=== PATIENT | female | born 1960 | race Caucasian/White ===

== ENCOUNTER 2016-10-19 17:06 | Emergency (ER) | payer OTHER ==
[~2016-10-19] VITALS: Ht 167.6 cm; Wt 72.0 kg
[2016-10-19] MEDS ORDERED: SODIUM CHLORIDE FLUSH 10ML SYR IVF ONE (17:30)
[2016-10-19] MEDS ORDERED: ONDANSETRON 2MG/ML, 2ML IVPush ONE ×2 (17:30→21:30)
[2016-10-19] MEDS ORDERED: HYDROmorphone 1 MG/ML, 1ML IVPush PRN (17:30)
[2016-10-19] MEDS ORDERED: ONDANSETRON 2MG/ML, 2ML ONE ×2 (18:11→20:48)
[2016-10-19] MEDS ORDERED: HYDROmorphone 1 MG/ML, 1ML ONE ×2 (18:11→20:48)
[2016-10-19] MEDS ORDERED: HYDROmorphone 1 MG/ML, 1ML IV ONE (20:30)
[2016-10-19 20:42] VITALS: BP 135/86
== END 2016-10-19 21:35 | disposition home or self-care (01) ==
LOC: ED 21:30
DX: S82.64XA Nondisplaced fracture of lateral malleolus of right fibula, initial encounter for closed fracture (principal); S20.219A Contusion of unspecified front wall of thorax, initial encounter; E03.9 Hypothyroidism, unspecified; F41.9 Anxiety disorder, unspecified; I10 Essential (primary) hypertension; G89.29 Other chronic pain; Z86.718 Personal history of other venous thrombosis and embolism; V43.52XA Car driver injured in collision with other type car in traffic accident, initial encounter; Y93.89 Activity, other specified; Y99.8 Other external cause status; Y92.488 Other paved roadways as the place of occurrence of the external cause
CPT/HCPCS: 29515; 36415; 71010; 73610; 85610; 93005; 96374; 96375; 96376; 99285; J1170; J2405

== ENCOUNTER 2017-05-16 12:07 | Emergency (ER) | payer OTHER ==
[~2017-05-16] VITALS: Ht 167.6 cm; Wt 70.4 kg
[2017-05-16 12:18] VITALS: BP 146/95
== END 2017-05-16 14:27 | disposition left against medical advice (07) ==
LOC: ED 14:20
DX: S06.0X0A Concussion without loss of consciousness, initial encounter (principal); E03.9 Hypothyroidism, unspecified; E78.00 Pure hypercholesterolemia, unspecified; I10 Essential (primary) hypertension; Z86.718 Personal history of other venous thrombosis and embolism; Z79.01 Long term (current) use of anticoagulants; W00.0XXA Fall on same level due to ice and snow, initial encounter; Y93.89 Activity, other specified; Y99.8 Other external cause status; Y92.410 Unspecified street and highway as the place of occurrence of the external cause
CPT/HCPCS: 99281

== ENCOUNTER 2017-05-21 17:35 | Emergency (ER) | payer OTHER ==
[~2017-05-21] VITALS: Ht 167.6 cm; Wt 70.4 kg
[2017-05-21 17:37] VITALS: BP 164/106
== END 2017-05-21 19:21 | disposition home or self-care (01) ==
LOC: ED 19:20
DX: S00.03XA Contusion of scalp, initial encounter (principal); Z79.01 Long term (current) use of anticoagulants; E78.00 Pure hypercholesterolemia, unspecified; E03.9 Hypothyroidism, unspecified; I10 Essential (primary) hypertension; Z86.718 Personal history of other venous thrombosis and embolism; W19.XXXA Unspecified fall, initial encounter; Y93.89 Activity, other specified; Y92.89 Other specified places as the place of occurrence of the external cause; Y99.8 Other external cause status
CPT/HCPCS: 70450; 99284

== ENCOUNTER → 2017-11-18 | Outpatient (CLI) | payer OTHER | END | disposition home or self-care (01) | LOC: CFH 14:45 | PROVIDERS: ATTEND Internal Medicine | DX: Z12.31 Encounter for screening mammogram for malignant neoplasm of breast (principal); N63.20 Unspecified lump in the left breast, unspecified quadrant | CPT/HCPCS: 77063; 77067 ==

== ENCOUNTER → 2017-12-02 | Outpatient (CLI) | payer OTHER | END | disposition home or self-care (01) | LOC: CFH 14:50 | PROVIDERS: ATTEND Internal Medicine | DX: N63.22 Unspecified lump in the left breast, upper inner quadrant (principal) | CPT/HCPCS: 77066 ==

== ENCOUNTER → 2017-12-09 | Outpatient (CLI) | payer OTHER ==
[~2017-12-09] MED LIST: LIDOCAINE 1%, 20ML ONE; LIDOCAINE 1%-EPI 1:100K, 20ML ONE; SODIUM BICARBONATE 4.0%, 5ML ONE
== END | disposition home or self-care (01) ==
LOC: CFH 08:42
PROVIDERS: ATTEND Internal Medicine
DX: C50.212 Malignant neoplasm of upper-inner quadrant of left female breast (principal); Z17.0 Estrogen receptor positive status [ER+]; Z86.711 Personal history of pulmonary embolism; Z79.01 Long term (current) use of anticoagulants
CPT/HCPCS: 19083; 77065; 88305; J3490

== ENCOUNTER → 2017-12-14 | Outpatient (CLI) | payer OTHER | END | disposition home or self-care (01) | LOC: CFH 09:19 | PROVIDERS: ATTEND Internal Medicine | DX: N60.11 Diffuse cystic mastopathy of right breast (principal) | CPT/HCPCS: 19081; 77065; 88305; J3490 ==

== ENCOUNTER → 2018-01-16 | Outpatient (CLI) | payer OTHER ==
[~2018-01-16] MED LIST changes: +ALPR2TAB5 PO; +CARV12.543 PO; +CHOL100015 PO; +CHOL200024 PO; +DOXY100T PO; +ERGO2000 PO; +LEVO50TA PO; -LIDOCAINE 1%, 20ML ONE; -LIDOCAINE 1%-EPI 1:100K, 20ML ONE; +LIOT5TAB10 PO; +PRAS1TAB PO; +RIVA20TA PO; -SODIUM BICARBONATE 4.0%, 5ML ONE
== END | disposition home or self-care (01) ==
LOC: STAR 15:53
PROVIDERS: ATTEND Surgery
DX: Z01.818 Encounter for other preprocedural examination (principal); D05.12 Intraductal carcinoma in situ of left breast; D48.61 Neoplasm of uncertain behavior of right breast
CPT/HCPCS: 93005

== ENCOUNTER 2018-01-26 11:10 | Day surgery (SDC) | payer OTHER ==
[~2018-01-26] VITALS: Ht 167.6 cm; Wt 74.4 kg
[~2018-01-26 11:10] MED LIST changes: +BACITRACIN 50,000 UNIT ONE; +BUPIVACAINE/PF-EPI 0.5% 1:200K ONE; +GENTAMICIN 80 MG/2 ML ONE; +ISOSULFAN BLUE 10 MG/ML, 5ML IV ONE; +VANCOMYCIN 1,000 MG ONE
[2018-01-26] MEDS ORDERED: LACTATED RINGERS 1,000 ML IV SCH ×2 (11:35→21:00)
[2018-01-26] MEDS ORDERED: ACETAMINOPHEN 500 MG TABLET PO ONE (12:00)
[2018-01-26] MEDS ORDERED: SCOPOLAMINE PATCH, 1.5MG PATCH.TD72 TD ONE (12:00)
[2018-01-26] MEDS ORDERED: GABAPENTIN 300 MG CAPSULE PO ONE (12:00)
[2018-01-26] MEDS ORDERED: ONDANSETRON ODT 8 MG PO ONE (12:00)
[2018-01-26] MEDS ORDERED: MIDAZOLAM 1 MG/ML, 2ML ONE (12:19)
[2018-01-26] MEDS ORDERED: FENTANYL PF 250 MCG/5ML ONE (12:19)
[2018-01-26 12:28] VITALS: BP 148/96
[2018-01-26] MEDS ORDERED: CEFAZOLIN 1,000 MG ONE ×2 (14:07→14:34)
[2018-01-26] MEDS ORDERED: LABETALOL 5MG/ML, 20ML ONE (14:34)
[2018-01-26] MEDS ORDERED: PROPOFOL 10 MG/ML, 20ML ONE (14:34)
[2018-01-26] MEDS ORDERED: ROCURONIUM 10 MG/ML,10ML ONE (14:34)
[2018-01-26] MEDS ORDERED: EPHEDRINE 50 MG/ML, 1ML ONE (14:34)
[2018-01-26] MEDS ORDERED: DEXAMETHASONE 4 MG/ML, 5ML ONE (14:34)
[2018-01-26] MEDS ORDERED: LIDOCAINE 4%, 4 ML SYR/CANN TP ONE (14:34)
[2018-01-26] MEDS ORDERED: LIDOCAINE-MPF 2% ,5ML ONE (14:34)
[2018-01-26] MEDS ORDERED: GLYCOPYRROLATE 0.2MG/1ML, 5ML ONE (14:34)
[2018-01-26] MEDS ORDERED: PROPOFOL 10 MG/ML, 50ML ONE (14:34)
[2018-01-26] MEDS ORDERED: ONDANSETRON ODT 8 MG PO PRN (15:30)
[2018-01-26] MEDS ORDERED: MEPERIDINE/PF 25MG/0.5ML IVPush PRN (15:30)
[2018-01-26] MEDS ORDERED: OXYcodone 5 MG/5 ML ORAL.SOL UDC PO PRN (15:30)
[2018-01-26] MEDS ORDERED: ONDANSETRON 2MG/ML, 2ML IV PRN (15:30)
[2018-01-26] MEDS ORDERED: LORazepam 2 MG/ML, 1ML IVPush PRN (15:30)
[2018-01-26] MEDS ORDERED: LABETALOL 5MG/ML, 20ML IV PRN (15:30)
[2018-01-26] MEDS ORDERED: hydrALAzine 20 MG/ML, 1ML IV PRN (15:30)
[2018-01-26] MEDS ORDERED: DIAZEPAM 5 MG/ML, 2ML IVPush PRN (15:30)
[2018-01-26] MEDS ORDERED: PROMETHAZINE 25 MG/ML, 1ML IV PRN (15:30)
[2018-01-26] MEDS ORDERED: BUPIVACAINE/PF-EPI 0.5% 1:200K ONE (17:21)
[2018-01-26] MEDS ORDERED: HYDROmorphone 2 MG/ML, 1ML ONE (18:23)
[2018-01-26] MEDS ORDERED: FENTANYL PF 100 MCG/2ML ONE (18:23)
[2018-01-26] MEDS ORDERED: OXYcodone 5 MG/5 ML ORAL.SOL UDC ONE (18:23)
[2018-01-26] MEDS: FENTANYL PF 100 MCG/2ML IV PRN ×2 (18:30→18:57)
[2018-01-26] MEDS: HYDROmorphone 1 MG/ML, 1ML IV PRN ×2 (18:39→18:48)
[2018-01-26] MEDS ORDERED: LORazepam 2 MG/ML, 1ML ONE (19:00)
[2018-01-26] MEDS ORDERED: MORPHINE SULFATE 4 MG/ML, 1ML IVPush PRN (21:00)
[2018-01-26] MEDS ORDERED: ONDANSETRON 2MG/ML, 2ML IVPush PRN (21:00)
== END 2018-01-26 23:55 | disposition home or self-care (01) ==
LOC: OUT 11:10 → EDSTATUS 14:00 → 4NOR 20:00 → OUT 23:55
PROVIDERS: ATTEND Surgery
DX: C50.912 Malignant neoplasm of unspecified site of left female breast (principal); I10 Essential (primary) hypertension; E03.9 Hypothyroidism, unspecified; F41.9 Anxiety disorder, unspecified; Z86.718 Personal history of other venous thrombosis and embolism; Z90.5 Acquired absence of kidney; Z79.899 Other long term (current) drug therapy; Z98.890 Other specified postprocedural states
CPT/HCPCS: 19340; 38525; 38792; 88305; 88307; 88333; A9541; C1729; C1762; C1789; J0690; J1100; J1170; J1580; J2060; J2250; J2704; J3010; J3490; J7120; Q0162; G0378; J3370

== ENCOUNTER 2018-04-03 09:34 | Outpatient (CLI) | payer MEDICARE, OTHER ==
[~2018-04-03 09:34] MED LIST changes: -BACITRACIN 50,000 UNIT ONE; -BUPIVACAINE/PF-EPI 0.5% 1:200K ONE; -GENTAMICIN 80 MG/2 ML ONE; -ISOSULFAN BLUE 10 MG/ML, 5ML IV ONE; -VANCOMYCIN 1,000 MG ONE
== END 2018-04-03 23:59 | disposition home or self-care (01) ==
LOC: ROC 09:34
PROVIDERS: ATTEND Radiology Radiation Oncology
DX: Z02.9 Encounter for administrative examinations, unspecified (principal)

== ENCOUNTER → 2018-05-12 | Outpatient (CLI) | payer MEDICARE | END | disposition home or self-care (01) | LOC: CFH 12:00 | PROVIDERS: ATTEND Internal Medicine Hematology & Oncology | DX: C50.812 Malignant neoplasm of overlapping sites of left female breast (principal); Z78.0 Asymptomatic menopausal state | CPT/HCPCS: 77080 ==

== ENCOUNTER 2018-07-27 08:11 | Outpatient (CLI) | payer MEDICARE | END 2018-07-27 23:59 | disposition home or self-care (01) | LOC: ROC 08:11 → EDSTATUS 02-27 10:37 | PROVIDERS: ATTEND Radiology Radiation Oncology | DX: Z02.9 Encounter for administrative examinations, unspecified (principal) ==

== ENCOUNTER → 2018-08-10 | Outpatient (CLI) | payer MEDICARE | END | disposition home or self-care (01) | LOC: ROC 08:05 | PROVIDERS: ATTEND Radiology Radiation Oncology | DX: C50.912 Malignant neoplasm of unspecified site of left female breast (principal) | CPT/HCPCS: 99212; G0463 ==

== ENCOUNTER → 2019-02-01 | Outpatient (CLI) | payer MEDICARE, OTHER | END | disposition home or self-care (01) | LOC: ROC 08:58 | PROVIDERS: ATTEND Radiology Radiation Oncology | DX: Z08 Encounter for follow-up examination after completed treatment for malignant neoplasm (principal); C50.812 Malignant neoplasm of overlapping sites of left female breast | CPT/HCPCS: 99213; G0463 ==

== ENCOUNTER 2019-02-16 07:47 | Outpatient (CLI) | payer MEDICARE, OTHER | END 2019-02-16 23:59 | disposition home or self-care (01) | LOC: ROC 07:47 | PROVIDERS: ATTEND Radiology Radiation Oncology | DX: C50.812 Malignant neoplasm of overlapping sites of left female breast (principal) | CPT/HCPCS: 99212; G0463 ==

== ENCOUNTER 2019-03-08 09:30 | Outpatient (CLI) | payer MEDICARE, OTHER | END 2019-03-08 23:59 | disposition home or self-care (01) | LOC: ROC 09:30 | PROVIDERS: ATTEND Radiology Radiation Oncology | DX: Z02.9 Encounter for administrative examinations, unspecified (principal) ==

== ENCOUNTER 2019-08-24 08:38 | Day surgery (SDC) | payer MEDICARE, OTHER ==
[~2019-08-24] VITALS: Ht 167.6 cm; Wt 70.5 kg
[2019-08-24] MEDS ORDERED: MIDAZOLAM 1 MG/ML, 2ML ONE (09:21)
[2019-08-24] MEDS ORDERED: FENTANYL PF 250 MCG/5ML ONE (09:22)
[2019-08-24] MEDS ORDERED: LACTATED RINGERS 1,000 ML IV SCH (09:36)
[2019-08-24 09:40] VITALS: BP 137/91
[2019-08-24] MEDS ORDERED: CHLORHEXIDINE 15 ML UDC ONE (09:50)
[2019-08-24] MEDS ORDERED: LIDOCAINE-MPF 1%, 2ML INFIL ONE (10:00)
[2019-08-24] MEDS ORDERED: CHLORHEXIDINE 15 ML UDC MM ONE (10:00)
[2019-08-24] MEDS ORDERED: PLEASE ENTER HEIGHT AND WEIGHT MC SCH (10:00)
[2019-08-24] MEDS ORDERED: GABAPENTIN 300 MG CAPSULE ONE (10:02)
[2019-08-24] MEDS ORDERED: SCOPOLAMINE 1MG PATCH TD ONE (10:02)
[2019-08-24] MEDS ORDERED: ACETAMINOPHEN 500 MG TABLET ONE (10:02)
[2019-08-24] MEDS ORDERED: LIDOCAINE 1%-EPI 1:100K, 20ML ONE (10:14)
[2019-08-24] MEDS ORDERED: PROMETHAZINE 25 MG/ML, 1ML IV PRN (11:30)
[2019-08-24] MEDS ORDERED: hydrALAzine 20 MG/ML, 1ML IV PRN (11:30)
[2019-08-24] MEDS ORDERED: DIAZEPAM 5 MG/ML, 2ML IVPush PRN (11:30)
[2019-08-24] MEDS ORDERED: LABETALOL 5MG/ML, 20ML IV PRN (11:30)
[2019-08-24] MEDS ORDERED: HYDROmorphone 2 MG/ML, 1ML IVPush PRN (11:30)
[2019-08-24] MEDS ORDERED: OXYcodone 5 MG/5 ML ORAL.SOL UDC PO PRN (11:30)
[2019-08-24] MEDS ORDERED: ALBUTEROL SULFATE 2.5 MG/3 ML NPPB PRN (11:30)
[2019-08-24] MEDS ORDERED: NEOSTIGMINE 1 MG/ML, 10ML ONE (11:59)
[2019-08-24] MEDS ORDERED: CEFAZOLIN 1,000 MG ONE (11:59)
[2019-08-24] MEDS ORDERED: SUCCINYLCHOLINE 20 MG/ML, 10ML ONE (11:59)
[2019-08-24] MEDS ORDERED: GLYCOPYRROLATE 0.2MG/1ML, 5ML ONE (11:59)
[2019-08-24] MEDS ORDERED: ONDANSETRON 2MG/ML, 2ML ONE (11:59)
[2019-08-24] MEDS ORDERED: PROPOFOL 10 MG/ML, 20ML ONE (11:59)
[2019-08-24] MEDS ORDERED: DEXAMETHASONE 4 MG/ML, 1ML ONE (11:59)
[2019-08-24] MEDS ORDERED: ROCURONIUM 10MG/ML,5ML ONE (11:59)
[2019-08-24] MEDS ORDERED: FENTANYL PF 100 MCG/2ML ONE (12:05)
[2019-08-24] MEDS ORDERED: OXYcodone 5 MG/5 ML ORAL.SOL UDC ONE (12:06)
[2019-08-24] MEDS: FENTANYL PF 100 MCG/2ML IV PRN ×2 (12:08→12:16)
[2019-08-24] MEDS ORDERED: HYDROmorphone 1 MG/ML, 1ML INJ ONE (12:35)
== END 2019-08-24 15:00 | disposition home or self-care (01) ==
LOC: OUT 08:38
PROVIDERS: ATTEND Plastic Surgery
DX: C50.919 Malignant neoplasm of unspecified site of unspecified female breast (principal); T85.44XS Capsular contracture of breast implant, sequela; I10 Essential (primary) hypertension; E03.9 Hypothyroidism, unspecified; Z79.899 Other long term (current) drug therapy; Z79.01 Long term (current) use of anticoagulants; Y83.8 Other surgical procedures as the cause of abnormal reaction of the patient, or of later complication, without mention of misadventure at the time of the procedure; Z86.718 Personal history of other venous thrombosis and embolism; Z98.890 Other specified postprocedural states; Z11.59 Encounter for screening for other viral diseases
CPT/HCPCS: 15771; 15772; 19380; 36415; 87635; 93005; J0330; J0690; J1100; J1170; J2250; J2405; J2704; J2710; J3010; J3490; J7120

== ENCOUNTER 2019-09-21 07:48 | Outpatient (CLI) | payer MEDICARE, OTHER | END 2019-09-21 23:59 | disposition home or self-care (01) | LOC: ROC 07:48 | PROVIDERS: ATTEND Radiology Radiation Oncology | DX: C50.812 Malignant neoplasm of overlapping sites of left female breast (principal) | CPT/HCPCS: 99212; G0463 ==

== ENCOUNTER → 2019-11-09 | Outpatient (CLI) | payer MEDICARE, OTHER ==
[~2019-11-09] MED LIST changes: +anastrozole
== END | disposition home or self-care (01) ==
LOC: STAR 15:19
PROVIDERS: ATTEND Anesthesiology
DX: Z01.812 Encounter for preprocedural laboratory examination (principal); Z20.828 Contact with and (suspected) exposure to other viral communicable diseases
CPT/HCPCS: 36415; 87635

== ENCOUNTER 2019-11-13 13:53 | Day surgery (SDC) | payer MEDICARE, OTHER ==
[~2019-11-13] VITALS: Ht 167.6 cm; Wt 70.2 kg
[~2019-11-13 13:53] MED LIST changes: -anastrozole
[2019-11-13] MEDS ORDERED: anastrozole (14:20)
[2019-11-13] MEDS ORDERED: LACTATED RINGERS 1,000 ML IV SCH (14:24)
[2019-11-13] MEDS ORDERED: CHLORHEXIDINE 15 ML UDC MM ONE (14:30)
[2019-11-13] MEDS ORDERED: DIAZEPAM 5 MG TABLET PO ONE (14:30)
[2019-11-13] MEDS ORDERED: SCOPOLAMINE 1MG PATCH TD SCH (14:30)
[2019-11-13] MEDS ORDERED: ACETAMINOPHEN 500 MG TABLET PO ONE (14:30)
[2019-11-13 15:02] VITALS: BP 136/93
[2019-11-13] MEDS ORDERED: MIDAZOLAM 1 MG/ML, 2ML ONE (15:15)
[2019-11-13] MEDS ORDERED: FENTANYL PF 250 MCG/5ML ONE (15:15)
[2019-11-13] MEDS ORDERED: LIDOCAINE 1%-EPI 1:100K, 20ML ONE ×2 (15:55→16:00)
[2019-11-13] MEDS ORDERED: OXYcodone 5 MG/5 ML ORAL.SOL UDC PO PRN ×2 (16:30→19:00)
[2019-11-13] MEDS ORDERED: PROMETHAZINE 25 MG/ML, 1ML IVPush PRN (16:30)
[2019-11-13] MEDS ORDERED: ONDANSETRON 2MG/ML, 2ML IVPush PRN ×2 (16:30→19:00)
[2019-11-13] MEDS ORDERED: hydrALAzine 20 MG/ML, 1ML IV PRN (16:30)
[2019-11-13] MEDS ORDERED: LABETALOL 5MG/ML, 20ML IV PRN (16:30)
[2019-11-13] MEDS ORDERED: LORazepam 2 MG/ML, 1ML IVPush PRN (16:30)
[2019-11-13] MEDS ORDERED: PROMETHAZINE 25 MG SUPP PR PRN (16:30)
[2019-11-13] MEDS ORDERED: SUGAMMADEX 200 MG/2 ML IVPush ONE (17:05)
[2019-11-13] MEDS ORDERED: NEOSTIGMINE 1 MG/ML, 10ML ONE (17:16)
[2019-11-13] MEDS ORDERED: DEXAMETHASONE 4 MG/ML, 1ML ONE (17:16)
[2019-11-13] MEDS ORDERED: ROCURONIUM 10MG/ML,5ML ONE (17:16)
[2019-11-13] MEDS ORDERED: PROPOFOL 10 MG/ML, 20ML ONE (17:16)
[2019-11-13] MEDS ORDERED: SUCCINYLCHOLINE 20 MG/ML, 10ML ONE (17:16)
[2019-11-13] MEDS ORDERED: CEFAZOLIN 1,000 MG ONE (17:16)
[2019-11-13] MEDS ORDERED: ONDANSETRON 2MG/ML, 2ML ONE (17:16)
[2019-11-13] MEDS ORDERED: GLYCOPYRROLATE 0.2MG/1ML, 5ML ONE (17:16)
[2019-11-13] MEDS: FENTANYL PF 100 MCG/2ML IV PRN ×2 (17:28→17:42)
[2019-11-13] MEDS: HYDROmorphone 1 MG/ML, 1ML INJ IVPush PRN ×2 (17:29→17:39)
[2019-11-13] MEDS ORDERED: FENTANYL PF 100 MCG/2ML ONE (17:31)
[2019-11-13] MEDS ORDERED: OXYcodone 5 MG/5 ML ORAL.SOL UDC ONE (17:31)
[2019-11-13] MEDS ORDERED: HYDROmorphone 1 MG/ML, 1ML INJ ONE (17:31)
[2019-11-13] MEDS ORDERED: LORazepam 2 MG/ML, 1ML ONE (17:55)
[2019-11-13] MEDS ORDERED: MORPHINE SULFATE 4 MG/ML, 1ML IVPush PRN (19:00)
[2019-11-13 19:32] VITALS: BP 120/73
== END 2019-11-13 21:19 | disposition home or self-care (01) ==
LOC: OR 13:53 → 4NE 18:20 → OR 21:19
PROVIDERS: ATTEND Plastic Surgery
DX: N65.1 Disproportion of reconstructed breast (principal); D68.2 Hereditary deficiency of other clotting factors; I10 Essential (primary) hypertension; F41.9 Anxiety disorder, unspecified; Z79.01 Long term (current) use of anticoagulants; Z85.3 Personal history of malignant neoplasm of breast; Z86.718 Personal history of other venous thrombosis and embolism; Z90.13 Acquired absence of bilateral breasts and nipples; Z90.5 Acquired absence of kidney; Z92.3 Personal history of irradiation
CPT/HCPCS: 15771; 15772; 19316; C1729; J0330; J0690; J1100; J1170; J2250; J2405; J2704; J2710; J3010; J3490; J7120; G0378

== ENCOUNTER 2019-12-27 09:12 | Outpatient (CLI) | payer MEDICARE, OTHER ==
[~2019-12-27 09:12] MED LIST changes: +anastrozole
== END 2019-12-27 23:59 | disposition home or self-care (01) ==
LOC: ROC 09:12
PROVIDERS: ATTEND Radiology Radiation Oncology
DX: Z08 Encounter for follow-up examination after completed treatment for malignant neoplasm (principal); F41.9 Anxiety disorder, unspecified; I10 Essential (primary) hypertension; Z85.3 Personal history of malignant neoplasm of breast; Z90.13 Acquired absence of bilateral breasts and nipples; Z90.5 Acquired absence of kidney; Z79.01 Long term (current) use of anticoagulants; Z86.718 Personal history of other venous thrombosis and embolism
CPT/HCPCS: 99212; G0463

== ENCOUNTER → 2020-01-31 | Outpatient (CLI) | payer MEDICARE | END | disposition home or self-care (01) | LOC: EDSTATUS 01-17 15:00 → RAD 14:44 → EDSTATUS 15:00 | PROVIDERS: ATTEND Urology | DX: M25.80 Other specified joint disorders, unspecified joint (principal); Z87.442 Personal history of urinary calculi | CPT/HCPCS: 74018; 76770 ==

== ENCOUNTER 2020-04-04 07:51 | Outpatient (CLI) | payer MEDICARE | END 2020-04-04 23:59 | disposition home or self-care (01) | LOC: ROC 07:51 | PROVIDERS: ATTEND Radiology Radiation Oncology | DX: Z08 Encounter for follow-up examination after completed treatment for malignant neoplasm (principal); Z85.3 Personal history of malignant neoplasm of breast | CPT/HCPCS: 99212; G0463 ==

== ENCOUNTER → 2020-08-08 | Outpatient (CLI) | payer MEDICARE | END | disposition home or self-care (01) | LOC: CFH 11:05 | PROVIDERS: ATTEND Otolaryngology | DX: J32.3 Chronic sphenoidal sinusitis (principal); J31.0 Chronic rhinitis; J32.2 Chronic ethmoidal sinusitis | CPT/HCPCS: 70486 ==

== ENCOUNTER 2020-10-22 14:04 | Outpatient (CLI) | payer MEDICARE ==
[2020-10-22] MEDS ORDERED: ERGO1250 PO (15:11)
[2020-10-22] MEDS ORDERED: liothyronine PO (15:11)
[2020-10-22] MEDS ORDERED: LEVO75TA PO (15:11)
[2020-10-22] MEDS ORDERED: ANAS1TAB49 PO (15:11)
[2020-10-22] MEDS ORDERED: ALPR-585 PO (15:11)
[2020-10-22] MEDS ORDERED: doxycycline PO (15:11)
[2020-10-22] MEDS ORDERED: hydrochlorothiazide PO (15:11)
[2020-10-22] MEDS ORDERED: ROSU20TA2 PO (15:11)
== END 2020-10-22 23:59 | disposition home or self-care (01) ==
LOC: STAR 14:04
PROVIDERS: ATTEND Plastic Surgery
DX: Z01.818 Encounter for other preprocedural examination (principal); C50.812 Malignant neoplasm of overlapping sites of left female breast; N65.0 Deformity of reconstructed breast; Z85.3 Personal history of malignant neoplasm of breast
CPT/HCPCS: 93005

== ENCOUNTER 2020-10-24 08:15 | Outpatient (CLI) | payer MEDICARE ==
[~2020-10-24 08:15] MED LIST changes: +ALPR-585 PO; +ANAS1TAB49 PO; +ERGO1250 PO; +LEVO75TA PO; +ROSU20TA2 PO; +doxycycline PO; +hydrochlorothiazide PO; +liothyronine PO
== END 2020-10-24 23:59 | disposition home or self-care (01) ==
LOC: CFH 08:15
PROVIDERS: ATTEND Internal Medicine Cardiovascular Disease
DX: Z13.6 Encounter for screening for cardiovascular disorders (principal); N83.02 Follicular cyst of left ovary; M81.0 Age-related osteoporosis without current pathological fracture; E78.5 Hyperlipidemia, unspecified; Z78.0 Asymptomatic menopausal state
CPT/HCPCS: 75571; 76830; 77080

== ENCOUNTER 2020-10-30 10:48 | Day surgery (SDC) | payer MEDICARE ==
[~2020-10-30] VITALS: Ht 167.6 cm; Wt 74.1 kg
[2020-10-30 11:08] VITALS: BP 120/85
[2020-10-30] MEDS ORDERED: CHLORHEXIDINE 15 ML UDC ONE (11:24)
[2020-10-30] MEDS ORDERED: LACTATED RINGERS 1,000 ML IV SCH (11:30)
[2020-10-30] MEDS ORDERED: CHLORHEXIDINE 15 ML UDC PO ONE (11:30)
[2020-10-30] MEDS ORDERED: CEFAZOLIN 1,000 MG ONE ×2 (11:41→11:53)
[2020-10-30] MEDS ORDERED: SODIUM CHLORIDE 0.9% 100 ML ONE (11:41)
[2020-10-30] MEDS ORDERED: EPINEPHRINE TOPICAL SOLN 1 MG/ML, 30ML ONE (11:41)
[2020-10-30] MEDS ORDERED: LIDOCAINE-MPF 2% ,5ML ONE (11:41)
[2020-10-30] MEDS ORDERED: EPINEPHRINE 1 MG/ML, 1ML ONE ×2 (11:41→13:12)
[2020-10-30] MEDS ORDERED: SODIUM BICARBONATE 1 MEQ/ML, 50ML VIAL ONE (11:42)
[2020-10-30] MEDS ORDERED: BUPIVACAINE/PF 0.5% ONE ×2 (11:42→13:12)
[2020-10-30] MEDS ORDERED: ROCURONIUM 10MG/ML,5ML ONE (11:53)
[2020-10-30] MEDS ORDERED: ONDANSETRON 2MG/ML, 2ML ONE (11:53)
[2020-10-30] MEDS ORDERED: GLYCOPYRROLATE 0.2MG/1ML, 5ML ONE (11:53)
[2020-10-30] MEDS ORDERED: NEOSTIGMINE 1 MG/ML, 10ML ONE (11:53)
[2020-10-30] MEDS ORDERED: PROPOFOL 10 MG/ML, 20ML ONE (11:53)
[2020-10-30] MEDS ORDERED: DEXAMETHASONE 4 MG/ML, 1ML ONE (11:53)
[2020-10-30] MEDS ORDERED: FENTANYL PF 250 MCG/5ML ONE (11:54)
[2020-10-30] MEDS ORDERED: MIDAZOLAM 1 MG/ML, 2ML ONE (11:54)
[2020-10-30] MEDS ORDERED: PROPOFOL 50 ML ONE (12:03)
[2020-10-30] MEDS ORDERED: OXYcodone 5 MG/5 ML ORAL.SOL UDC PO PRN (13:00)
[2020-10-30] MEDS ORDERED: KETOROLAC 30 MG/1 ML IV PRN (13:00)
[2020-10-30] MEDS ORDERED: ALBUTEROL SULFATE 2.5 MG/3 ML NPPB PRN (13:00)
[2020-10-30] MEDS ORDERED: PROMETHAZINE 25 MG/ML, 1ML IVPush PRN (13:00)
[2020-10-30] MEDS ORDERED: LABETALOL 5MG/ML, 20ML IV PRN (13:00)
[2020-10-30] MEDS ORDERED: DIPHENHYDRAMINE 50 MG/ML, 1ML IVPush PRN (13:00)
[2020-10-30] MEDS ORDERED: MEPERIDINE/PF 25MG/0.5ML IVPush PRN (13:00)
[2020-10-30] MEDS ORDERED: HYDROmorphone 1 MG/ML, 1ML INJ IVPush PRN (13:00)
[2020-10-30] MEDS ORDERED: FENTANYL PF 100 MCG/2ML ONE (14:40)
[2020-10-30] MEDS ORDERED: OXYcodone 5 MG/5 ML ORAL.SOL UDC ONE (14:41)
[2020-10-30] MEDS: FENTANYL PF 100 MCG/2ML IV PRN ×4 (14:43→15:22)
== END 2020-10-30 17:00 | disposition home or self-care (01) ==
LOC: OUT 10:48
PROVIDERS: ATTEND Plastic Surgery
DX: T85.44XA Capsular contracture of breast implant, initial encounter (principal); N65.1 Disproportion of reconstructed breast; L90.5 Scar conditions and fibrosis of skin; D68.51 Activated protein C resistance; I10 Essential (primary) hypertension; E78.5 Hyperlipidemia, unspecified; F41.9 Anxiety disorder, unspecified; E03.9 Hypothyroidism, unspecified; Z79.01 Long term (current) use of anticoagulants; Z79.890 Hormone replacement therapy; Z79.899 Other long term (current) drug therapy; Z85.3 Personal history of malignant neoplasm of breast; Z86.718 Personal history of other venous thrombosis and embolism; Z90.13 Acquired absence of bilateral breasts and nipples; Y83.8 Other surgical procedures as the cause of abnormal reaction of the patient, or of later complication, without mention of misadventure at the time of the procedure
CPT/HCPCS: 13101; 15570; 15771; 15772; 19350; C1760; J0171; J0690; J1100; J2250; J2405; J2704; J2710; J3010; J7120